=== PATIENT | female | born 2000 | race African-American/Black ===

== ENCOUNTER 2021-01-28 15:59 | Emergency (ER) | payer OTHER, SELFPAY ==
[2021-01-28 16:07] VITALS: BP 129/71; PULSE 75; RESP 16; TEMP 36.7; O2SAT 100
--- NOTE | 2021-01-28 16:14 | ED.FEMALEGU ---
HPI - Female Genitourinary General Chief complaint: Urogenital-Female Stated complaint: POS UTI/pos yeast infection Time Seen by Provider: 01/28/21 16:10 Source: patient and RN notes reviewed History of Present Illness HPI Narrative: Patient is a 20-year-old female who presents the urgent care with complaints of a possible UTI. Patient states that she has had urinary frequency, urgency and dysuria for approximately 4 days. Patient states that she was diagnosed with a UTI 2 months ago and symptoms did improve after medication. Patient is unsure of what medication she was on at that time. Denies of any abdominal pain, nausea, vomiting, fever. Patient states that she has been drinking no sugar cranberry juice for symptom relief. States that she has no immediate concern for STD, but it is possible . No other acute complaints. No acute distress noted. Patient aware of the plan of care. Some parts of this dictation were generated by voice recognition software and may contain typographical and/or grammatical inaccuracies. Related Data Home Medications Medication Instructions Recorded Confirmed Pepcid 01/28/21 omeprazole 01/28/21 Allergies Allergy/AdvReac Type Severity Reaction Status Date / Time No Known Allergies Allergy Verified 01/28/21 16:09 Review of Systems Review of Systems: CONSTITUTIONAL: Denies fever, chills, or sweats. EYES: Denies visual changes, redness, or discharge. ENT: Denies rhinorrhea, congestion, sore throat, or otalgia. CARDIOVASCULAR: Denies chest pain, palpitations, or edema. RESPIRATORY: Denies cough or dyspnea. GASTROINTESTINAL: Denies abdominal pain, nausea, vomiting, or diarrhea. GENITOURINARY: Reports of urinary frequency, dysuria and urgency SKIN: Denies rash or itching. MUSCULOSKELETAL: Denies back pain, joint pain, or myalgia. NEUROLOGIC: Denies headache, numbness, or weakness. All other systems reviewed are negative, except as documented in HPI. PMFSH Comments At the time of my signature, I reviewed and agree with the nursing past medical, surgical, social, and family history. There is no relevant family history pertinent to the patient complaint. Exam Narrative: GENERAL: This is a well-nourished, well-developed patient, in no apparent distress. HEAD: normocephalic, atraumatic. EYES: PERRL. Sclera clear/white. Vision is grossly intact. EARS: External ears normal NOSE: External nose normal with no obvious nasal discharge, nares without redness, no rhinorrhea. THROAT: Mucous membranes moist, posterior pharynx clear. NECK: Neck supple CARDIOVASCULAR: Regular rate and rhythm without murmurs, gallops, or rubs. RESPIRATORY: Clear to auscultation. Breath sounds equal bilaterally. No wheezes, rales, or rhonchi. GASTROINTESTINAL: Abdomen soft, non-tender, nondistended. Bowel sounds are active. SKIN: warm, intact with no suspicious lesions or rash, good texture and turgor. NEURO: awake, alert, and oriented to person, place and time. There were no obvious focal neurologic abnormalities. EXTREMITIES: No clubbing, cyanosis, or edema. BACK: Negative bilateral CVA tenderness Course Vital Signs Vital signs: Vital Signs Temperature 98.0 F 01/28/21 16:07 Pulse Rate 75 01/28/21 16:07 Respiratory Rate 16 01/28/21 16:07 Blood Pressure 129/71 01/28/21 16:07 Pulse Oximetry 100 01/28/21 16:07 Temperature 98.0 F 01/28/21 16:07 Pulse Rate 75 01/28/21 16:07 Respiratory Rate 16 01/28/21 16:07 Blood Pressure 129/71 01/28/21 16:07 Pulse Oximetry 100 01/28/21 16:07 Reviewed MDM - Female Genitourinary MDM Narrative Medical decision making narrative: Reviewed lab results with the patient. She is aware that urine analysis is indicative of a urinary tract infection. Advised the patient to complete oral antibiotic regimen as prescribed. Be sure to eat and drink with the medication. Use Pyridium as needed for bladder spasms. If you develop any increase in symptoms
== END 2021-01-28 16:36 | disposition home or self-care (01) ==
PROVIDERS: Emergency Provider Nurse Practitioner Family
DX: N39.0 Urinary tract infection, site not specified (principal)
CPT/HCPCS: 81003; 87077; 87086; 87088; 87186; 87491; 87591; 87661; 99213; G0463

== ENCOUNTER 2021-03-13 10:14 | Emergency (ER) | payer OTHER, SELFPAY ==
[2021-03-13 10:20] VITALS: BP 129/83; PULSE 90; RESP 16; TEMP 36.6; O2SAT 100
--- NOTE | 2021-03-13 10:21 | ED.SKABFB ---
HPI - Skin/Abscess/Foreign Bdy General Chief complaint: Skin/Abscess/Foreign Body Stated complaint: RASH Time Seen by Provider: 03/13/21 10:38 Source: patient and RN notes reviewed Mode of arrival: ambulatory Limitations: no limitations History of Present Illness HPI narrative: 20-year-old female presents concern for rash to her left buttock area. Reports the rash is not itchy, is slightly painful/irritating. She denies intervention for the rash. Reports she has had the rash for several days, her menstrual pad rubs up against the rash area. She denies any drainage from the area. Denies any other areas of rash. She is also interested in being screened for sexually transmitted infection, she denies any known contact, however reports she has had unprotected sex. She denies any abnormal vaginal discharge. Reports she is currently on her menstrual period. MD complaint: rash Related Data Home Medications Medication Instructions Recorded Confirmed famotidine 03/13/21 omeprazole 03/13/21 spironolactone 03/13/21 Allergies Allergy/AdvReac Type Severity Reaction Status Date / Time No Known Allergies Allergy Verified 03/13/21 10:21 Review of Systems Review of Systems: CONSTITUTIONAL: Denies malaise, chills, sweats, or fever. GASTROINTESTINAL: Denies abdominal pain, nausea, vomiting GENITOURINARY: Denies dysuria or hematuria. Denies abnormal vaginal discharge SKIN: Reports irritating rash in the left buttock MUSCULOSKELETAL: Denies myalgia. All systems reviewed & are unremarkable except as noted in HPI and below PMFSH Comments At time of signature, agree with nursing past medical, surgical, social and family history. There is no relevant family history pertinent to the presenting complaint Exam Narrative: GENERAL: Well-appearing, well-nourished, and in no acute distress. HEAD: Normocephalic, atraumatic. EYES: PERRLA, conjunctivae clear ENT: Mucous membranes moist. NECK: Supple. No lymphadenopathy CHEST: Clear to auscultation. No respiratory distress. HEART: Regular rate and rhythm. SKIN: Warm, dry. Approximately 4 cm x 1 cm area of excoriation without lesions, vesicles, open skin noted to the left buttock along the panty line NEURO: Alert and oriented x3. PSYCH: Normal mood and affect Course Course Emergency Course: Patient is aware of diagnosis, understands and agrees to treatment plan. Anticipatory guidance given. Patient agrees to follow-up as directed and is aware of reasons to seek care at the emergency department. Portions of this record may have been created with voice recognition software Vital Signs Vital signs: Reviewed. MDM - Skin/Abscess/Foreign Bdy MDM Narrative Medical decision making narrative: Does not appear at this time to be erythema multiforme, bullous, SJS, TEN; no evidence at this time to suggest RMSF, endocarditis or Lyme disease; patient looks well, nontoxic and is tolerating oral intake; no neurologic signs or symptoms; no headache, photophobia or neck pain; afebrile; appropriate for initial outpatient treatment; discussed the importance of follow-up, patient agrees; question, viral exanthema, contact dermatitis, allergic dermatitis, eczema, urticaria, STD. No soft palate or uvula edema, no tongue, lip edema or other mucosal involvement, no respiratory compromise, no stridor, no wheezing, no wheezing, no history of syncope, no hypotension, no nausea, vomiting, or diarrhea. Instructed patient to go to nearest ER immediately for any worsening symptoms including but not limited to: fever, spreading rash, pain, sore throat, headache, dizziness, chest pain, trouble breathing, or any symptoms concerning to the patient. Critical Care Time Critical Care Time Critical Care Time: No Discharge Plan Discharge Clinical Impression: Contact dermatitis Qualifiers: Contact dermatitis type: irritant Contact dermatitis trigger: other chemical product Qualified Code(s): L24.5 - Irritant contact d
== END 2021-03-13 11:10 | disposition home or self-care (01) ==
PROVIDERS: Emergency Provider Nurse Practitioner
DX: L24.5 Irritant contact dermatitis due to other chemical products (principal)
CPT/HCPCS: 87491; 87591; 87661; 99213; G0463